=== PATIENT | male | born 2000 | race Hispanic/Latino ===

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

== ENCOUNTER 2021-06-03 20:34 | Emergency (ER) | payer OTHER ==
[~2021-06-03] VITALS: Ht 168.9 cm; Wt 75.0 kg
[2021-06-03] MEDS ORDERED: GENTAMICIN SULF5 ML OD (22:15)
[2021-06-03 22:24] VITALS: BP 140/92
== END 2021-06-03 22:30 | disposition home or self-care (01) | DRG 125 ==
LOC: ED 20:34
PROC: 08CSXZZ Extirpation of Matter from Right Conjunctiva, External Approach (ICD-10-PCS; principal; 2021-06-03)
DX: T15.11XA Foreign body in conjunctival sac, right eye, initial encounter (principal); X58.XXXA Exposure to other specified factors, initial encounter; Y93.H9 Activity, other involving exterior property and land maintenance, building and construction; Y92.89 Other specified places as the place of occurrence of the external cause; Y99.0 Civilian activity done for income or pay